=== PATIENT | female | born 1950 | race Two or more races ===

== ENCOUNTER 2019-12-12 14:59 | Emergency (ER) | payer MEDICARE, MEDICAID ==
[~2019-12-12] VITALS: Ht 180.3 cm; Wt 72.6 kg
[2019-12-12 16:59] LABS: Basophils # (auto) 0.1 10 ^3/uL (0-0.2); Basophils % (auto) 0.7 % (0.0-2.0); Eosinophils # (auto) 0.2 10 ^3/uL (0-0.8); Lymphocytes # (auto) 2.5 10 ^3/uL (0.4-5.4); Monocytes # (auto) 0.4 10 ^3/uL (0-1.3); Nucleated Red Blood Cells % 0.1 %; Red Cell Distribution Width 17.5 % (11.8-14.3); White Blood Cell 8.5 10^3/uL (4.4-10.8)
[2019-12-12 17:00] LABS: Eosinophils % (auto) 1.8 % (0.0-7.0); Hematocrit 32.2 % (36.0-46.0); Hemoglobin 10.1 g/dL (12.2-16.2); Mean Corpuscular Hemoglobin 25.7 pg (28.0-32.0); Mean Corpuscular Hgb Conc. 31.4 g/dL (32.0-36.0); Mean Corpuscular Volume 81.6 fL (80.0-100.0); Monocytes % (auto) 4.8 % (0.0-12.0); Neutrophils # (auto) 5.4 10 ^3/uL (1.6-8.6); Neutrophils % (auto) 63.7 % (37.0-80.0); Platelet Count (auto) 352 10^3/uL (140-450); Red Blood Cells 3.95 10^6/uL (4.0-5.20)
[2019-12-12 17:13] LABS: INR 1.06 (0.9-1.15); Partial Thromboplastin Time 27.9 sec (23.0-31.2)
[2019-12-12 18:43] VITALS: BP 127/75
== END 2019-12-12 18:25 | disposition home or self-care (01) ==
LOC: EDBD 14:59 → ER 14:59
DX: H11.32 Conjunctival hemorrhage, left eye (principal)
CPT/HCPCS: 36415; 85025; 85610; 85730; 93005

== ENCOUNTER 2020-06-13 14:16 | Inpatient (IN) | payer MEDICARE, MEDICAID ==
[~2020-06-13] VITALS: Ht 152.4 cm; Wt 72.3 kg
[2020-06-13 18:05] LABS: Basophils # (auto) 0.1 10 ^3/uL (0-0.2); Eosinophils # (auto) 0.1 10 ^3/uL (0-0.8); Lymphocytes # (auto) 1.4 10 ^3/uL (0.4-5.4); Mean Corpuscular Hgb Conc. 31.1 g/dL (32.0-36.0); Monocytes # (auto) 0.5 10 ^3/uL (0-1.3); Nucleated Red Blood Cells % 0.1 %; White Blood Cell 7.5 10^3/uL (4.4-10.8)
[2020-06-13 18:07] LABS: Basophils % (auto) 0.8 % (0.0-2.0); Eosinophils % (auto) 1.6 % (0.0-7.0); Hemoglobin 9.4 g/dL (12.2-16.2); Lymphocytes % (auto) 18.6 % (10.0-50.0); Mean Corpuscular Hemoglobin 26.5 pg (28.0-32.0); Mean Corpuscular Volume 85.1 fL (80.0-100.0); Monocytes % (auto) 7.1 % (0.0-12.0); Neutrophils # (auto) 5.4 10 ^3/uL (1.6-8.6); Neutrophils % (auto) 71.9 % (37.0-80.0); Platelet Count (auto) 376 10^3/uL (140-450); Red Blood Cells 3.53 10^6/uL (4.0-5.20); Red Cell Distribution Width 15.6 % (11.8-14.3)
[2020-06-13 18:20] LABS: Potassium 4.9 mmol/L (3.5-5.1)
[2020-06-13 18:23] LABS: Bilirubin, Total 0.3 mg/dL (0.2-1.0); Total Protein 6.7 g/dL (6.4-8.2)
[2020-06-13 18:25] LABS: INR 1.01 (0.9-1.15); Partial Thromboplastin Time 27.6 sec (23.0-31.2)
[2020-06-13] MEDS ORDERED: methylPREDNISolone SOD SUCC 125 MG/2 ML VL IV ONE (19:00)
[2020-06-13] MEDS ORDERED: IPRATROPIUM BROM 0.5 MG/2.5ML INH SOL HHN ONE (19:00)
[2020-06-13] MEDS ORDERED: ALBUTEROL SULF 2.5 MG/0.5ML(0.5%) NEB SOLN HHN ONE (19:00)
[2020-06-13 21:30] LABS: Magnesium 1.8 mg/dL (1.6-2.6)
[2020-06-13] MEDS ORDERED: FUROSEMIDE 20 MG/2 ML VIAL IV ONE (21:45)
[2020-06-13] MEDS ORDERED: DEXTROSE (50%) 50ML SYRG IV PRN (21:45)
[2020-06-13] MEDS ORDERED: MORPHINE SULF INJ 2 MG/ML SYRINGE 1ML IV PRN (21:45)
[2020-06-13] MEDS ORDERED: NITROGLYCERIN 0.4 MG SL TAB SL PRN (21:45)
[2020-06-13] MEDS ORDERED: ONDANSETRON HCL 4 MG/2 ML VIAL IV PRN (22:00)
[2020-06-13] MEDS ORDERED: TEMAZEPAM 15 MG CAP PO PRN (22:00)
[2020-06-13] MEDS: ACCU-CHEK COMFORT CURVE STRIP VI SCH (22:20)
[2020-06-13] MEDS: ATORVASTATIN 20 MG TAB PO SCH (23:14)
[2020-06-13] MEDS: InsuLIN REG 1unit/0.01ml Soln (100units/ml) SC SCH (23:14)
[2020-06-13 23:31] VITALS: BP 135/49
[2020-06-13] MEDS: IPRATROPIUM BROM 0.5 MG/2.5ML INH SOL NEB SCH (23:40)
[2020-06-13] MEDS: ALBUTEROL SULF 2.5 MG/0.5ML(0.5%) NEB SOLN NEB SCH (23:40)
[2020-06-14] MEDS ORDERED: FUROSEMIDE 40 MG TAB PO SCH (06:00)
[2020-06-14] MEDS: ACCU-CHEK COMFORT CURVE STRIP VI SCH ×4 (07:14→23:50)
[2020-06-14] MEDS: InsuLIN REG 1unit/0.01ml Soln (100units/ml) SC SCH ×4 (07:43→23:56)
[2020-06-14 08:00] VITALS: BP 143/55
[2020-06-14] MEDS: ALBUTEROL SULF 2.5 MG/0.5ML(0.5%) NEB SOLN NEB SCH ×4 (08:12→22:23)
[2020-06-14] MEDS: IPRATROPIUM BROM 0.5 MG/2.5ML INH SOL NEB SCH ×4 (08:12→22:23)
[2020-06-14 08:16] LABS: Basophils # (auto) 0 10 ^3/uL (0-0.2); Eosinophils # (auto) 0 10 ^3/uL (0-0.8); Hemoglobin 9.3 g/dL (12.2-16.2); Monocytes # (auto) 0.1 10 ^3/uL (0-1.3); Neutrophils # (auto) 6.5 10 ^3/uL (1.6-8.6)
[2020-06-14 08:19] LABS: Basophils % (auto) 0.1 % (0.0-2.0); Hematocrit 28.8 % (36.0-46.0); Lymphocytes # (auto) 0.5 10 ^3/uL (0.4-5.4); Lymphocytes % (auto) 7.1 % (10.0-50.0); Mean Corpuscular Hemoglobin 27.5 pg (28.0-32.0); Mean Corpuscular Hgb Conc. 32.1 g/dL (32.0-36.0); Mean Corpuscular Volume 85.8 fL (80.0-100.0); Monocytes % (auto) 0.8 % (0.0-12.0); Nucleated Red Blood Cells % 0.1 %; Platelet Count (auto) 344 10^3/uL (140-450); Red Blood Cells 3.36 10^6/uL (4.0-5.20); Red Cell Distribution Width 15.7 % (11.8-14.3); White Blood Cell 7.1 10^3/uL (4.4-10.8)
[2020-06-14 08:35] LABS: Albumin 2.9 g/dL (3.4-5.0); BUN/Creatinine Ratio 21.3; Potassium 5.2 mmol/L (3.5-5.1)
[2020-06-14 08:38] LABS: Bilirubin, Total 0.3 mg/dL (0.2-1.0); Total Protein 6.9 g/dL (6.4-8.2)
[2020-06-14 08:42] VITALS: BP 143/55
[2020-06-14] MEDS: PANTOPRAZOLE 40 MG TAB PO SCH (09:52)
[2020-06-14] MEDS: dilTIAZem HCL 180MG ER CAP PO SCH (09:54)
[2020-06-14] MEDS ORDERED: LOSARTAN POTASSIUM 50 MG TAB PO SCH (10:00)
[2020-06-14] MEDS ORDERED: ASPirin 81 mg TAB PO SCH (10:00)
[2020-06-14] MEDS ORDERED: cefTRIAXone 1GM/50ML D5W 50 ML IV ONE (12:45)
[2020-06-14] MEDS ORDERED: SODIUM ZIRCONIUM CYCL 10 GM PAK PO ONE (12:45)
[2020-06-14] MEDS ORDERED: IPRATROPIUM BROM 0.5 MG/2.5ML INH SOL NEB PRN (12:45)
[2020-06-14] MEDS ORDERED: ALBUTEROL SULF 2.5 MG/0.5ML(0.5%) NEB SOLN NEB PRN (12:45)
[2020-06-14] MEDS ORDERED: AZITHROMYCIN 500MG/ 250ML 250 ML IV ONE (12:45)
[2020-06-14 12:47] LABS: Urine Bacteria FEW /hpf (None Seen); Urine Blood Negative /uL (Negative); Urine Specific Gravity 1.008 (1.001-1.035); Urine WBC <1 /hpf (0 - 5)
[2020-06-14 13:00] VITALS: BP 138/68
[2020-06-14 14:00] LABS: % Iron Saturation 9.3 % (15-50)
[2020-06-14 16:37] VITALS: BP 126/57
[2020-06-14] MEDS ORDERED: FUR20T PO (17:30)
[2020-06-14] MEDS ORDERED: APIX5TAB PO (17:30)
[2020-06-14] MEDS ORDERED: ASPI-325 PO (17:30)
[2020-06-14] MEDS ORDERED: LOSA-69 PO (17:30)
[2020-06-14] MEDS ORDERED: OMEP-260 PO (17:30)
[2020-06-14] MEDS ORDERED: INSU70IN3 SC (17:55)
[2020-06-14] MEDS ORDERED: INSLISPI SC (17:55)
[2020-06-14] MEDS ORDERED: DILT-29 PO (17:55)
[2020-06-14 22:00] VITALS: BP 112/47
[2020-06-14] MEDS: ATORVASTATIN 20 MG TAB PO SCH (23:50)
[2020-06-14] MEDS: methylPREDNISolone SOD SUCC 40 MG/ML VL IV SCH (23:50)
[2020-06-14] MEDS: INSULIN LANTUS (GLARGINE) 1 /0.01ml (100units/ml) SC SCH (23:51)
[2020-06-15] VITALS (8 sets, daily range): BP systolic 126–156; BP diastolic 57–96
[2020-06-15] MEDS: ALBUTEROL SULF 2.5 MG/0.5ML(0.5%) NEB SOLN NEB SCH ×6 (02:09→22:30)
[2020-06-15] MEDS: IPRATROPIUM BROM 0.5 MG/2.5ML INH SOL NEB SCH ×6 (02:10→22:30)
[2020-06-15] MEDS: InsuLIN REG 1unit/0.01ml Soln (100units/ml) SC SCH ×4 (06:45→22:03)
[2020-06-15] MEDS: ACCU-CHEK COMFORT CURVE STRIP VI SCH ×4 (07:00→22:00)
[2020-06-15 07:40] LABS: Calcium 8.3 mg/dL (8.5-10.1)
[2020-06-15 07:45] LABS: BUN/Creatinine Ratio 34.7
[2020-06-15 07:47] LABS: Potassium 5.8 mmol/L (3.5-5.1)
[2020-06-15] MEDS: cefTRIAXone 1GM/50ML D5W 50 ML IV SCH (09:02)
[2020-06-15] MEDS ORDERED: FUROSEMIDE 40 MG/4 ML VIAL IV SCH (10:00)
[2020-06-15] MEDS ORDERED: ENOXAPARIN SOD 40 MG/0.4 ML SYRINGE SC SCH (10:00)
[2020-06-15] MEDS ORDERED: SODIUM ZIRCONIUM CYCL 10 GM PAK PO ONE (10:06)
[2020-06-15] MEDS: methylPREDNISolone SOD SUCC 40 MG/ML VL IV SCH ×2 (10:35→21:50)
[2020-06-15] MEDS: ASPirin 81 mg TAB PO SCH (10:36)
[2020-06-15] MEDS: AZITHROMYCIN 500MG/ 250ML 250 ML IV SCH (10:36)
[2020-06-15] MEDS: dilTIAZem HCL 180MG ER CAP PO SCH (10:37)
[2020-06-15] MEDS: PANTOPRAZOLE 40 MG TAB PO SCH (10:37)
[2020-06-15] MEDS: ERGOCALCIFEROL 50,000 UNIT(1.25MG) CAP PO SCH (11:58)
[2020-06-15] MEDS ORDERED: DOBUTamine 1000MCG/ML 100 ML IV ONE (13:30)
[2020-06-15] MEDS ORDERED: DOBUTamine 1000MCG/ML 250 ML IV ONE (13:32)
[2020-06-15] MEDS ORDERED: ATROPINE SULF 0.5 MG/5ML SYR ONE (13:32)
[2020-06-15] MEDS: ACETAMINOPHEN 325 MG TAB PO PRN (15:56)
[2020-06-15 18:52] LABS: Creatinine, Urine 26 mg/dL (30.0-125.0); Sodium Urine 90 mmol/L (40-220)
[2020-06-15] MEDS: ATORVASTATIN 20 MG TAB PO SCH (21:51)
[2020-06-15] MEDS: SODIUM ZIRCONIUM CYCL 10 GM PAK PO SCH (21:51)
[2020-06-15] MEDS: ENOXAPARIN SOD 80 MG/0.8ML SYRINGE SC SCH (21:53)
[2020-06-15] MEDS: INSULIN LANTUS (GLARGINE) 1 /0.01ml (100units/ml) SC SCH (22:03)
[2020-06-16] MEDS: ACCU-CHEK COMFORT CURVE STRIP VI SCH ×6 (02:24→20:29)
[2020-06-16] MEDS: InsuLIN REG 1unit/0.01ml Soln (100units/ml) SC SCH ×6 (02:26→20:49)
[2020-06-16] MEDS: ALBUTEROL SULF 2.5 MG/0.5ML(0.5%) NEB SOLN NEB SCH ×4 (02:38→23:10)
[2020-06-16] MEDS: IPRATROPIUM BROM 0.5 MG/2.5ML INH SOL NEB SCH ×4 (02:39→23:10)
[2020-06-16 05:00] VITALS: BP 139/47
[2020-06-16 06:21] LABS: Hematocrit 26.3 % (36.0-46.0); Hemoglobin 8.6 g/dL (12.2-16.2)
[2020-06-16] MEDS: SODIUM ZIRCONIUM CYCL 10 GM PAK PO SCH (06:27)
[2020-06-16 06:33] LABS: Calcium 8.5 mg/dL (8.5-10.1); Potassium 4.4 mmol/L (3.5-5.1)
[2020-06-16 06:37] LABS: BUN/Creatinine Ratio 39.5
[2020-06-16 09:00] VITALS: BP 129/74
[2020-06-16] MEDS: cefTRIAXone 1GM/50ML D5W 50 ML IV SCH (09:57)
[2020-06-16] MEDS: methylPREDNISolone SOD SUCC 40 MG/ML VL IV SCH ×3 (09:57→22:42)
[2020-06-16] MEDS: ASPirin 81 mg TAB PO SCH (10:00)
[2020-06-16] MEDS: dilTIAZem HCL 180MG ER CAP PO SCH (10:00)
[2020-06-16] MEDS: ACETAMINOPHEN 325 MG TAB PO PRN (10:01)
[2020-06-16] MEDS: PANTOPRAZOLE 40 MG TAB PO SCH (10:01)
[2020-06-16] MEDS: ENOXAPARIN SOD 80 MG/0.8ML SYRINGE SC SCH ×2 (10:09→22:42)
[2020-06-16] MEDS: AZITHROMYCIN 500MG/ 250ML 250 ML IV SCH (10:45)
[2020-06-16 13:00] VITALS: BP 141/70
[2020-06-16 17:00] VITALS: BP 145/70
[2020-06-16] MEDS ORDERED: DEXTROSE (50%) 50ML SYRG IV PRN (18:30)
[2020-06-16 22:00] VITALS: BP 146/82
[2020-06-16] MEDS: ATORVASTATIN 20 MG TAB PO SCH (22:42)
[2020-06-16] MEDS: CALCIUM CARB 500 MG CHEW TAB PO PRN (22:43)
[2020-06-16] MEDS: INSULIN LANTUS (GLARGINE) 1 /0.01ml (100units/ml) SC SCH (22:44)
[2020-06-17] VITALS (7 sets, daily range): BP systolic 140–168; BP diastolic 67–92
[2020-06-17] MEDS: ACCU-CHEK COMFORT CURVE STRIP VI SCH ×7 (00:38→23:14)
[2020-06-17] MEDS: IPRATROPIUM BROM 0.5 MG/2.5ML INH SOL NEB SCH ×6 (02:15→22:38)
[2020-06-17] MEDS: InsuLIN REG 1unit/0.01ml Soln (100units/ml) SC SCH ×7 (04:00→23:14)
[2020-06-17 05:41] LABS: Hematocrit 26.9 % (36.0-46.0); Hemoglobin 8.8 g/dL (12.2-16.2)
[2020-06-17 06:12] LABS: Potassium 3.9 mmol/L (3.5-5.1)
[2020-06-17 06:17] LABS: BUN/Creatinine Ratio 44.8; Calcium 8.8 mg/dL (8.5-10.1)
[2020-06-17] MEDS: ALBUTEROL SULF 2.5 MG/0.5ML(0.5%) NEB SOLN NEB SCH ×5 (06:24→22:38)
[2020-06-17] MEDS: methylPREDNISolone SOD SUCC 40 MG/ML VL IV SCH ×2 (10:05→22:19)
[2020-06-17] MEDS: cefTRIAXone 1GM/50ML D5W 50 ML IV SCH (10:05)
[2020-06-17] MEDS: AZITHROMYCIN 500MG/ 250ML 250 ML IV SCH (10:05)
[2020-06-17] MEDS: dilTIAZem HCL 180MG ER CAP PO SCH (10:06)
[2020-06-17] MEDS: PANTOPRAZOLE 40 MG TAB PO SCH (10:06)
[2020-06-17] MEDS: ASPirin 81 mg TAB PO SCH (10:06)
[2020-06-17] MEDS: ENOXAPARIN SOD 80 MG/0.8ML SYRINGE SC SCH (10:06)
[2020-06-17] MEDS: CALCIUM CARB 500 MG CHEW TAB PO PRN (16:45)
[2020-06-17] MEDS: FUROSEMIDE 20 MG TAB PO SCH (18:18)
[2020-06-17] MEDS: APIXABAN 5 MG TAB PO SCH (22:19)
[2020-06-17] MEDS: ATORVASTATIN 20 MG TAB PO SCH (22:20)
[2020-06-17] MEDS: INSULIN LANTUS (GLARGINE) 1 /0.01ml (100units/ml) SC SCH (23:06)
[2020-06-18] MEDS: IPRATROPIUM BROM 0.5 MG/2.5ML INH SOL NEB SCH ×6 (03:02→22:00)
[2020-06-18] MEDS: ALBUTEROL SULF 2.5 MG/0.5ML(0.5%) NEB SOLN NEB SCH ×6 (03:02→22:00)
[2020-06-18] MEDS: ACCU-CHEK COMFORT CURVE STRIP VI SCH ×6 (04:01→23:00)
[2020-06-18] MEDS: InsuLIN REG 1unit/0.01ml Soln (100units/ml) SC SCH ×6 (04:04→23:51)
[2020-06-18 05:00] VITALS: BP 148/68
[2020-06-18 06:03] LABS: Potassium 4.4 mmol/L (3.5-5.1)
[2020-06-18 06:06] LABS: BUN/Creatinine Ratio 37.2; Calcium 8.7 mg/dL (8.5-10.1)
[2020-06-18] MEDS: FUROSEMIDE 20 MG TAB PO SCH (06:07)
[2020-06-18 09:00] VITALS: BP 159/81
[2020-06-18] MEDS ORDERED: ENOXAPARIN SOD 30 MG/0.3 ML SYRINGE SC SCH (10:00)
[2020-06-18] MEDS: cefTRIAXone 1GM/50ML D5W 50 ML IV SCH (10:29)
[2020-06-18] MEDS: methylPREDNISolone SOD SUCC 40 MG/ML VL IV SCH ×2 (10:29→21:54)
[2020-06-18] MEDS: ASPirin 81 mg TAB PO SCH (10:30)
[2020-06-18] MEDS: AZITHROMYCIN 500MG/ 250ML 250 ML IV SCH (10:30)
[2020-06-18] MEDS: dilTIAZem HCL 180MG ER CAP PO SCH (10:31)
[2020-06-18] MEDS: LOSARTAN POTASSIUM 50 MG TAB PO SCH (10:32)
[2020-06-18] MEDS: APIXABAN 5 MG TAB PO SCH ×2 (10:32→21:55)
[2020-06-18] MEDS: PANTOPRAZOLE 40 MG TAB PO SCH (10:32)
[2020-06-18 13:00] VITALS: BP 146/85
[2020-06-18 17:00] VITALS: BP 150/78
[2020-06-18 20:00] VITALS: BP 146/69
[2020-06-18 21:38] VITALS: BP 146/69
[2020-06-18] MEDS: ATORVASTATIN 20 MG TAB PO SCH (21:55)
[2020-06-18] MEDS: INSULIN LANTUS (GLARGINE) 1 /0.01ml (100units/ml) SC SCH (23:00)
[2020-06-19] MEDS: IPRATROPIUM BROM 0.5 MG/2.5ML INH SOL NEB SCH ×6 (02:00→22:40)
[2020-06-19] MEDS: ALBUTEROL SULF 2.5 MG/0.5ML(0.5%) NEB SOLN NEB SCH ×6 (02:00→22:40)
[2020-06-19] MEDS: ACCU-CHEK COMFORT CURVE STRIP VI SCH ×5 (03:57→22:27)
[2020-06-19] MEDS: InsuLIN REG 1unit/0.01ml Soln (100units/ml) SC SCH ×5 (03:58→22:26)
[2020-06-19 05:00] VITALS: BP 136/69
[2020-06-19] MEDS: FUROSEMIDE 20 MG TAB PO SCH ×3 (05:42→17:18)
[2020-06-19 07:15] LABS: Potassium 4.5 mmol/L (3.5-5.1)
[2020-06-19 07:17] LABS: Calcium 8.4 mg/dL (8.5-10.1); Magnesium 1.8 mg/dL (1.6-2.6)
[2020-06-19 08:46] VITALS: BP 144/69
[2020-06-19] MEDS: cefTRIAXone 1GM/50ML D5W 50 ML IV SCH (09:58)
[2020-06-19] MEDS: AZITHROMYCIN 500MG/ 250ML 250 ML IV SCH (09:58)
[2020-06-19] MEDS: methylPREDNISolone SOD SUCC 40 MG/ML VL IV SCH ×2 (09:58→22:24)
[2020-06-19] MEDS: PANTOPRAZOLE 40 MG TAB PO SCH (09:59)
[2020-06-19] MEDS: APIXABAN 5 MG TAB PO SCH ×2 (09:59→22:24)
[2020-06-19] MEDS: LOSARTAN POTASSIUM 50 MG TAB PO SCH (09:59)
[2020-06-19] MEDS: ASPirin 81 mg TAB PO SCH (09:59)
[2020-06-19] MEDS: dilTIAZem HCL 180MG ER CAP PO SCH (10:00)
[2020-06-19 13:00] VITALS: BP 97/61
[2020-06-19 16:43] VITALS: BP 151/72
[2020-06-19] MEDS: ACETAMINOPHEN 325 MG TAB PO PRN (17:19)
[2020-06-19] MEDS: CALCIUM CARB 500 MG CHEW TAB PO PRN (17:19)
[2020-06-19 21:00] VITALS: BP 139/72
[2020-06-19] MEDS: ATORVASTATIN 20 MG TAB PO SCH (22:24)
[2020-06-19] MEDS: INSULIN LANTUS (GLARGINE) 1 /0.01ml (100units/ml) SC SCH (22:27)
[2020-06-20 03:27] VITALS: BP 139/72
[2020-06-20] MEDS: IPRATROPIUM BROM 0.5 MG/2.5ML INH SOL NEB SCH ×6 (03:30→23:06)
[2020-06-20] MEDS: ALBUTEROL SULF 2.5 MG/0.5ML(0.5%) NEB SOLN NEB SCH ×6 (03:30→23:05)
[2020-06-20] MEDS: FUROSEMIDE 20 MG TAB PO SCH ×2 (06:29→17:45)
[2020-06-20] MEDS: InsuLIN REG 1unit/0.01ml Soln (100units/ml) SC SCH ×4 (06:29→22:09)
[2020-06-20] MEDS: ACCU-CHEK COMFORT CURVE STRIP VI SCH ×4 (06:37→22:07)
[2020-06-20 06:49] LABS: Eosinophils # (auto) 0 10 ^3/uL (0-0.8)
[2020-06-20 06:53] LABS: Basophils # (auto) 0 10 ^3/uL (0-0.2); Hematocrit 30.3 % (36.0-46.0); Lymphocytes # (auto) 0.9 10 ^3/uL (0.4-5.4); Lymphocytes % (auto) 9.5 % (10.0-50.0); Mean Corpuscular Hemoglobin 27.1 pg (28.0-32.0); Mean Corpuscular Volume 82.3 fL (80.0-100.0); Monocytes # (auto) 0.3 10 ^3/uL (0-1.3); Monocytes % (auto) 2.9 % (0.0-12.0); Neutrophils # (auto) 8.1 10 ^3/uL (1.6-8.6); Neutrophils % (auto) 87.6 % (37.0-80.0); Platelet Count (auto) 368 10^3/uL (140-450); Red Blood Cells 3.68 10^6/uL (4.0-5.20); Red Cell Distribution Width 15.2 % (11.8-14.3); White Blood Cell 9.2 10^3/uL (4.4-10.8)
[2020-06-20 07:09] LABS: Albumin 2.8 g/dL (3.4-5.0); Calcium 8.9 mg/dL (8.5-10.1); Potassium 4.3 mmol/L (3.5-5.1)
[2020-06-20 07:15] LABS: BUN/Creatinine Ratio 45.5; Bilirubin, Total 0.2 mg/dL (0.2-1.0)
[2020-06-20 09:00] VITALS: BP 148/64
[2020-06-20] MEDS: cefTRIAXone 1GM/50ML D5W 50 ML IV SCH (09:08)
[2020-06-20] MEDS: methylPREDNISolone SOD SUCC 40 MG/ML VL IV SCH ×2 (09:08→22:06)
[2020-06-20] MEDS: AZITHROMYCIN 500MG/ 250ML 250 ML IV SCH (09:09)
[2020-06-20] MEDS: ASPirin 81 mg TAB PO SCH (09:09)
[2020-06-20] MEDS: PANTOPRAZOLE 40 MG TAB PO SCH (09:10)
[2020-06-20] MEDS: dilTIAZem HCL 180MG ER CAP PO SCH (09:10)
[2020-06-20] MEDS: LOSARTAN POTASSIUM 50 MG TAB PO SCH (09:10)
[2020-06-20] MEDS: APIXABAN 5 MG TAB PO SCH ×2 (09:10→22:06)
[2020-06-20 13:00] VITALS: BP 143/69
[2020-06-20 17:00] VITALS: BP 136/61
[2020-06-20] MEDS: CALCIUM CARB 500 MG CHEW TAB PO PRN (19:47)
[2020-06-20 21:00] VITALS: BP 143/69
[2020-06-20] MEDS: ATORVASTATIN 20 MG TAB PO SCH (22:07)
[2020-06-20] MEDS: INSULIN LANTUS (GLARGINE) 1 /0.01ml (100units/ml) SC SCH (22:07)
[2020-06-21] MEDS: ALBUTEROL SULF 2.5 MG/0.5ML(0.5%) NEB SOLN NEB SCH ×6 (02:00→22:32)
[2020-06-21] MEDS: IPRATROPIUM BROM 0.5 MG/2.5ML INH SOL NEB SCH ×6 (02:00→22:32)
[2020-06-21 05:00] VITALS: BP 143/74
[2020-06-21 05:51] LABS: Basophils # (auto) 0 10 ^3/uL (0-0.2); Eosinophils # (auto) 0 10 ^3/uL (0-0.8); Hematocrit 30.5 % (36.0-46.0); Hemoglobin 9.8 g/dL (12.2-16.2); Lymphocytes # (auto) 0.8 10 ^3/uL (0.4-5.4); Mean Corpuscular Hemoglobin 26.5 pg (28.0-32.0); Mean Corpuscular Volume 82.6 fL (80.0-100.0); Monocytes # (auto) 0.3 10 ^3/uL (0-1.3); Monocytes % (auto) 2.7 % (0.0-12.0); Neutrophils # (auto) 8.4 10 ^3/uL (1.6-8.6); Neutrophils % (auto) 89.3 % (37.0-80.0); Platelet Count (auto) 410 10^3/uL (140-450); Red Blood Cells 3.69 10^6/uL (4.0-5.20); Red Cell Distribution Width 15.2 % (11.8-14.3); White Blood Cell 9.5 10^3/uL (4.4-10.8)
[2020-06-21 06:15] LABS: BUN/Creatinine Ratio 40.3; Calcium 8.6 mg/dL (8.5-10.1); Potassium 4.2 mmol/L (3.5-5.1)
[2020-06-21] MEDS: FUROSEMIDE 20 MG TAB PO SCH ×2 (06:24→16:59)
[2020-06-21] MEDS: ACCU-CHEK COMFORT CURVE STRIP VI SCH ×4 (06:42→22:00)
[2020-06-21] MEDS: InsuLIN REG 1unit/0.01ml Soln (100units/ml) SC SCH ×4 (06:42→22:00)
[2020-06-21 09:00] VITALS: BP 148/67
[2020-06-21] MEDS: methylPREDNISolone SOD SUCC 40 MG/ML VL IV SCH ×2 (10:32→22:48)
[2020-06-21] MEDS: cefTRIAXone 1GM/50ML D5W 50 ML IV SCH (10:32)
[2020-06-21] MEDS: APIXABAN 5 MG TAB PO SCH ×2 (10:32→22:50)
[2020-06-21] MEDS: dilTIAZem HCL 180MG ER CAP PO SCH (10:33)
[2020-06-21] MEDS: LOSARTAN POTASSIUM 50 MG TAB PO SCH (10:33)
[2020-06-21] MEDS: ASPirin 81 mg TAB PO SCH (10:33)
[2020-06-21] MEDS: PANTOPRAZOLE 40 MG TAB PO SCH (10:33)
[2020-06-21 13:00] VITALS: BP 145/82
[2020-06-21 17:00] VITALS: BP 144/71
[2020-06-21 22:00] VITALS: BP 145/61
[2020-06-21] MEDS: INSULIN LANTUS (GLARGINE) 1 /0.01ml (100units/ml) SC SCH (22:00)
[2020-06-21] MEDS: DOXYCYCLINE 100 MG TAB/CAP PO SCH (22:49)
[2020-06-21] MEDS: ATORVASTATIN 20 MG TAB PO SCH (22:50)
[2020-06-22] MEDS: IPRATROPIUM BROM 0.5 MG/2.5ML INH SOL NEB SCH ×6 (02:00→22:53)
[2020-06-22] MEDS: ALBUTEROL SULF 2.5 MG/0.5ML(0.5%) NEB SOLN NEB SCH ×6 (02:00→22:53)
[2020-06-22 05:00] VITALS: BP 144/67
[2020-06-22] MEDS: ACCU-CHEK COMFORT CURVE STRIP VI SCH ×4 (06:06→22:33)
[2020-06-22] MEDS: FUROSEMIDE 20 MG TAB PO SCH ×2 (06:07→17:26)
[2020-06-22] MEDS: InsuLIN REG 1unit/0.01ml Soln (100units/ml) SC SCH ×4 (06:15→22:34)
[2020-06-22 07:33] LABS: Magnesium 2.3 mg/dL (1.6-2.6); Potassium 4.4 mmol/L (3.5-5.1)
[2020-06-22 09:00] VITALS: BP 135/73
[2020-06-22] MEDS: PANTOPRAZOLE 40 MG TAB PO SCH (09:14)
[2020-06-22] MEDS: methylPREDNISolone SOD SUCC 40 MG/ML VL IV SCH ×2 (09:14→22:31)
[2020-06-22] MEDS: DOXYCYCLINE 100 MG TAB/CAP PO SCH ×2 (09:15→22:32)
[2020-06-22] MEDS: APIXABAN 5 MG TAB PO SCH ×2 (09:15→22:32)
[2020-06-22] MEDS: LOSARTAN POTASSIUM 50 MG TAB PO SCH (09:16)
[2020-06-22] MEDS: dilTIAZem HCL 180MG ER CAP PO SCH (09:17)
[2020-06-22] MEDS: ASPirin 81 mg TAB PO SCH (09:17)
[2020-06-22] MEDS: ERGOCALCIFEROL 50,000 UNIT(1.25MG) CAP PO SCH (09:17)
[2020-06-22] MEDS: CALCIUM CARB 500 MG CHEW TAB PO PRN (11:24)
[2020-06-22 13:00] VITALS: BP 144/67
[2020-06-22 17:00] VITALS: BP 143/76
[2020-06-22 21:17] VITALS: BP 143/76
[2020-06-22 22:00] VITALS: BP 145/70
[2020-06-22] MEDS: ATORVASTATIN 20 MG TAB PO SCH (22:32)
[2020-06-22] MEDS: INSULIN LANTUS (GLARGINE) 1 /0.01ml (100units/ml) SC SCH (22:33)
[2020-06-23] MEDS: ALBUTEROL SULF 2.5 MG/0.5ML(0.5%) NEB SOLN NEB SCH ×6 (02:31→22:52)
[2020-06-23] MEDS: IPRATROPIUM BROM 0.5 MG/2.5ML INH SOL NEB SCH ×6 (02:31→22:51)
[2020-06-23 05:00] VITALS: BP 138/68
[2020-06-23] MEDS: ACCU-CHEK COMFORT CURVE STRIP VI SCH ×4 (06:22→21:36)
[2020-06-23] MEDS: FUROSEMIDE 20 MG TAB PO SCH ×2 (06:22→17:46)
[2020-06-23] MEDS: InsuLIN REG 1unit/0.01ml Soln (100units/ml) SC SCH ×4 (06:23→21:38)
[2020-06-23 09:00] VITALS: BP 139/69
[2020-06-23] MEDS: PANTOPRAZOLE 40 MG TAB PO SCH (09:44)
[2020-06-23] MEDS: dilTIAZem HCL 180MG ER CAP PO SCH (09:44)
[2020-06-23] MEDS: APIXABAN 5 MG TAB PO SCH ×2 (09:44→21:36)
[2020-06-23] MEDS: ASPirin 81 mg TAB PO SCH (09:45)
[2020-06-23] MEDS: LOSARTAN POTASSIUM 50 MG TAB PO SCH (09:45)
[2020-06-23] MEDS: methylPREDNISolone SOD SUCC 40 MG/ML VL IV SCH ×2 (09:51→21:35)
[2020-06-23] MEDS: DOXYCYCLINE 100 MG TAB/CAP PO SCH ×2 (09:51→21:36)
[2020-06-23] MEDS: INSULIN LANTUS (GLARGINE) 1 /0.01ml (100units/ml) SC SCH ×2 (10:00→21:37)
[2020-06-23] MEDS: ACETAMINOPHEN 325 MG TAB PO PRN (11:00)
[2020-06-23 13:00] VITALS: BP 121/60
[2020-06-23 17:00] VITALS: BP 147/76
[2020-06-23] MEDS: CALCIUM CARB 500 MG CHEW TAB PO PRN (20:21)
[2020-06-23] MEDS: ATORVASTATIN 20 MG TAB PO SCH (21:36)
[2020-06-23 22:00] VITALS: BP 148/61
[2020-06-24] MEDS: IPRATROPIUM BROM 0.5 MG/2.5ML INH SOL NEB SCH ×5 (02:13→22:55)
[2020-06-24] MEDS: ALBUTEROL SULF 2.5 MG/0.5ML(0.5%) NEB SOLN NEB SCH ×5 (02:13→22:55)
[2020-06-24] MEDS: CALCIUM CARB 500 MG CHEW TAB PO PRN ×2 (04:24→17:00)
[2020-06-24 05:00] VITALS: BP 136/68
[2020-06-24] MEDS: FUROSEMIDE 20 MG TAB PO SCH ×2 (06:09→17:29)
[2020-06-24] MEDS: InsuLIN REG 1unit/0.01ml Soln (100units/ml) SC SCH ×4 (06:10→21:07)
[2020-06-24] MEDS: ACCU-CHEK COMFORT CURVE STRIP VI SCH ×4 (06:10→21:08)
[2020-06-24 06:30] LABS: Basophils # (auto) 0 10 ^3/uL (0-0.2); Eosinophils # (auto) 0 10 ^3/uL (0-0.8); Hematocrit 31.5 % (36.0-46.0); Lymphocytes # (auto) 1.1 10 ^3/uL (0.4-5.4); Lymphocytes % (auto) 11.4 % (10.0-50.0); Mean Corpuscular Hgb Conc. 31.8 g/dL (32.0-36.0); Mean Corpuscular Volume 81.8 fL (80.0-100.0); Monocytes # (auto) 0.4 10 ^3/uL (0-1.3); Monocytes % (auto) 4.4 % (0.0-12.0); Neutrophils % (auto) 84.2 % (37.0-80.0); Platelet Count (auto) 465 10^3/uL (140-450); Red Blood Cells 3.85 10^6/uL (4.0-5.20); Red Cell Distribution Width 15.6 % (11.8-14.3); White Blood Cell 9.5 10^3/uL (4.4-10.8)
[2020-06-24 06:38] LABS: BUN/Creatinine Ratio 59.7; Calcium 8.7 mg/dL (8.5-10.1); Magnesium 2.3 mg/dL (1.6-2.6); Potassium 4.3 mmol/L (3.5-5.1)
[2020-06-24 09:00] VITALS: BP 137/71
[2020-06-24] MEDS: LOSARTAN POTASSIUM 50 MG TAB PO SCH (09:33)
[2020-06-24] MEDS: APIXABAN 5 MG TAB PO SCH ×2 (09:34→21:09)
[2020-06-24] MEDS: dilTIAZem HCL 180MG ER CAP PO SCH (09:34)
[2020-06-24] MEDS: ASPirin 81 mg TAB PO SCH (09:34)
[2020-06-24] MEDS: methylPREDNISolone SOD SUCC 40 MG/ML VL IV SCH ×2 (09:35→21:09)
[2020-06-24] MEDS: PANTOPRAZOLE 40 MG TAB PO SCH (09:37)
[2020-06-24] MEDS: DOXYCYCLINE 100 MG TAB/CAP PO SCH ×2 (10:00→21:08)
[2020-06-24] MEDS: INSULIN LANTUS (GLARGINE) 1 /0.01ml (100units/ml) SC SCH ×2 (10:00→21:08)
[2020-06-24 13:00] VITALS: BP 111/57
[2020-06-24 17:00] VITALS: BP 122/70
[2020-06-24] MEDS: ATORVASTATIN 20 MG TAB PO SCH (21:09)
[2020-06-24 22:00] VITALS: BP 133/67
[2020-06-25] MEDS: ALBUTEROL SULF 2.5 MG/0.5ML(0.5%) NEB SOLN NEB SCH ×3 (02:00→11:00)
[2020-06-25] MEDS: IPRATROPIUM BROM 0.5 MG/2.5ML INH SOL NEB SCH ×3 (02:00→11:00)
[2020-06-25 05:00] VITALS: BP 143/67
[2020-06-25] MEDS: FUROSEMIDE 20 MG TAB PO SCH (05:25)
[2020-06-25] MEDS: ACETAMINOPHEN 325 MG TAB PO PRN (05:26)
[2020-06-25] MEDS: ACCU-CHEK COMFORT CURVE STRIP VI SCH ×2 (06:31→10:59)
[2020-06-25] MEDS: InsuLIN REG 1unit/0.01ml Soln (100units/ml) SC SCH ×2 (06:39→11:29)
[2020-06-25 09:07] VITALS: BP 162/69
[2020-06-25] MEDS ORDERED: DOCUSATE SOD 100 MG CAP PO PRN (09:15)
[2020-06-25] MEDS: INSULIN LANTUS (GLARGINE) 1 /0.01ml (100units/ml) SC SCH (09:49)
[2020-06-25] MEDS: APIXABAN 5 MG TAB PO SCH (09:50)
[2020-06-25] MEDS: DOXYCYCLINE 100 MG TAB/CAP PO SCH (09:50)
[2020-06-25] MEDS: PANTOPRAZOLE 40 MG TAB PO SCH (09:50)
[2020-06-25] MEDS: LOSARTAN POTASSIUM 50 MG TAB PO SCH (09:57)
[2020-06-25] MEDS: ASPirin 81 mg TAB PO SCH (09:58)
[2020-06-25] MEDS: dilTIAZem HCL 180MG ER CAP PO SCH (09:58)
[2020-06-25] MEDS: methylPREDNISolone SOD SUCC 40 MG/ML VL IV SCH (09:58)
[2020-06-25] MEDS: CALCIUM CARB 500 MG CHEW TAB PO PRN (09:59)
[2020-06-25] MEDS ORDERED: TIOTCAP IN (10:06)
[2020-06-25] MEDS ORDERED: PRED20TA2 PO (11:02)
[2020-06-25] MEDS ORDERED: ALBUAER3 IN (11:02)
[2020-06-25] MEDS ORDERED: CHOL20007 PO (11:02)
[2020-06-25 13:14] VITALS: BP 140/67
== END 2020-06-25 14:00 | disposition home health service (06) | DRG 133 ==
LOC: ER 14:16 → EDBD 14:16 → TELE 21:43 → TELE-WESTW 06-14 04:55
PROVIDERS: ADMIT Nurse Practitioner; ATTEND Internal Medicine
PROC: 5A09357 Assistance with Respiratory Ventilation, Less than 24 Consecutive Hours, Continuous Positive Airway Pressure (ICD-10-PCS; principal; 2020-06-16)
DX: J96.21 Acute and chronic respiratory failure with hypoxia (principal); J18.9 Pneumonia, unspecified organism; J44.1 Chronic obstructive pulmonary disease with (acute) exacerbation; N17.0 Acute kidney failure with tubular necrosis; D50.9 Iron deficiency anemia, unspecified; I13.0 Hypertensive heart and chronic kidney disease with heart failure and stage 1 through stage 4 chronic kidney disease, or unspecified chronic kidney disease; N18.31 Chronic kidney disease, stage 3a; E11.21 Type 2 diabetes mellitus with diabetic nephropathy; E88.09 Other disorders of plasma-protein metabolism, not elsewhere classified; E55.9 Vitamin D deficiency, unspecified; Z20.822 Contact with and (suspected) exposure to COVID-19; D63.8 Anemia in other chronic diseases classified elsewhere; E11.22 Type 2 diabetes mellitus with diabetic chronic kidney disease; E66.9 Obesity, unspecified; E78.5 Hyperlipidemia, unspecified; E87.2 Acidosis; E87.5 Hyperkalemia; I25.10 Atherosclerotic heart disease of native coronary artery without angina pectoris; I27.20 Pulmonary hypertension, unspecified; I48.0 Paroxysmal atrial fibrillation; J44.0 Chronic obstructive pulmonary disease with (acute) lower respiratory infection; J98.11 Atelectasis; Z79.01 Long term (current) use of anticoagulants; Z79.4 Long term (current) use of insulin; Z83.3 Family history of diabetes mellitus; Z86.73 Personal history of transient ischemic attack (TIA), and cerebral infarction without residual deficits; Z87.891 Personal history of nicotine dependence; Z95.5 Presence of coronary angioplasty implant and graft; Z99.81 Dependence on supplemental oxygen; Z90.49 Acquired absence of other specified parts of digestive tract; Z98.51 Tubal ligation status; Z68.31 Body mass index [BMI] 31.0-31.9, adult; I50.33 Acute on chronic diastolic (congestive) heart failure
CPT/HCPCS: 36415; 36600; 71045; 76775; 78452; 80048; 80053; 80061; 81001; 82306; 82570; 82805; 82962; 83036; 83540; 83550; 83605; 83735; 83880; 84132; 84156; 84300; 84443; 84484; 85014; 85018; 85025; 85379; 85610; 85730; 87040; 87070; 87205; 87426; 93005; 93017; 93306; 93970; 94640; 94660; 96374; 96375; 97110; 97116; 97530; G0378; J0461; J0696; J1815